=== PATIENT | female | born 1975 | race Caucasian/White ===

== ENCOUNTER 2018-04-06 16:20 | Emergency (ER) | payer BC ==
--- NOTE | 2018-04-06 16:21 | ED Physician Documentation ---
General Adult - HISTORIAN Historian: patient - HPI Stated Complaint: flank/abdominal pain Chief Complaint: Abdominal Pain Onset: days ago (2) Timing: still present Severity: moderate Further Comments: yes (She states two days ago she was walking with her mom and she got the most sharp pain she has ever had on her right upper back/flank / side area that "stopped me in my tracks and I fell down in pain" she states she did get home and she still had pain. she states she was going "work through it" and she tried to go on about her day today and she has had increasing pain. She is "not comfortable in any position" she has tried OTC with no relief . Denies a fever. she has no N/V/D. No other complaints) Last known Well Code/Unknown Code: Unknown - ROS CONST: denies: fever MS/SKIN/LYMPH: denies: rash NEURO/PSYCH: denies: difficulty walking - PAST HX Past History: none Other History: none Surgeries/Procedures: none Immunizations: UTD Allergies/Adverse Reactions: Allergies Allergy/AdvReac Type Severity Reaction Status Date / Time No Known Drug Allergies Allergy Verified 04/06/18 17:41 Home Medications: Ambulatory Orders Medication Instructions Recorded NK [NK] 04/06/18 - SOCIAL HX Smoking History: non-smoker Alcohol Use: none Drug Use: none - FAMILY HX Family History: No - REVIEWED ASSESSMENTS Nursing Assessment Reviewed: Yes Vitals Reviewed: Yes ED Results Lab/Radiology - Radiology Radiology Impressions: CT abdomen and pelvis without contrast Date of study: April 06, 2018. CLINICAL HISTORY: ABD PAIN STARTED YESTERDAY (Hx) / ITS.REASON R/O kidney stone (DICOM Hx) TECHNIQUE: 5 mm contiguous axial images of the abdomen and pelvis non contrast. FINDINGS: No comparison studies are provided. The lung bases are clear. Abdomen: The liver, pancreas and spleen are normal in appearance. Gallstones are present in the dependent aspect of the gallbladder. The kidneys are normal in size and surface contour. There is no evidence of renal or ureteral calculi identified. No hydronephrosis or perinephric stranding is evident. The aorta is normal in caliber. The small bowel is nondistended. There is no evidence of free air or free fluid. Pelvis: The colon is generally filled with stool. The distal ureters and bladder are normal in appearance. There is no evidence of distal ureteral or intravesicular calculi. And appendicolith is present in the tip of the appendix , however, the appendix is nondilated and there is no evidence surrounding inflammatory changes to suggest acute appendicitis. There is no evidence of free air or free fluid. The sigmoid colon and rectum are normal. The remaining pelvic structures are within normal limits and the bones of the pelvis are intact. IMPRESSION: No evidence of renal or ureteral calculi. Cholelithiasis. Electronically signed on April 06, 2018 6:33:51 PM CDT by: Ruma [facility] Adult Physical Exam - PHYSICAL EXAM GENERAL APPEARANCE: mild distress EENT: eye inspection normal, ENT inspection normal, pharynx normal, no signs of dehydration NECK: normal inspection RESPIRATORY: no resp distress, chest non-tender, breath sounds normal CVS: reg rate & rhythm, heart sounds normal, equal pulses, no murmur ABDOMEN: soft, normal bowel sounds, no distension, tenderness (RUQ - pain with palpation right mid abdomen ). No: McBurney's point tenderne, guarding BACK: normal inspection, CVA tenderness (R) SKIN: warm/dry, normal color EXTREMITIES: non-tender NEURO: oriented X3, CN's nml as tested, motor nml, sensation nml Discharge Clincal Impression: Cholelithiasis Qualifiers: Cholelithiasis location: other site Biliary obstruction: without biliary obstruction Qualified Code(s): K80.80 - Other cholelithiasis without obstruction Constipation Qualifiers: Constipation type: unspecified constipation type Qualified Code(s): K59.00 - Constipation, unspecified Referrals: Babak Willis MD [Primary Care Provider] - 2 Days Comments: 1. Percocet 5/325 mg take 1 by mouth at home and another for 4-6 hours if needed for pain 2. Increase clear liquids 3. Decrease fat and fried foods 4. Follow up with PCP in am about possible surgeon referral 5. Return to ER for uncontrolled pain or other concerns miralax for constipation Condition: Stable Disposition: 01 HOME, SELF-CARE Decision to Admit: NO Date of Decison to Admit: 04/06/18 Decision Time: 18:42
[2018-04-06] MEDS ORDERED: 0.9 % SODIUM CHLORIDE 1,000 ML IV ONE (16:39)
[2018-04-06] MEDS ORDERED: KETOROLAC TROMETHAMINE 30 MG/1ML VIAL ONE (16:58)
[2018-04-06] MEDS ORDERED: KETOROLAC TROMETHAMINE 30 MG/1ML VIAL IVP ONE (16:58)
[2018-04-06 17:14] LABS: eGFR (African) > 60; eGFR (Non-African) > 60
[2018-04-06 17:37] LABS: MEAN CORPUSCULAR VOLUME 81.6 fl (80.0-100.0)
[2018-04-06 17:39] LABS: MONOCYTES % 3.6 % (0.0-11.0)
[2018-04-06 17:40] LABS: BASOPHILS % 0.3 (0.0-1.5); EOSINOPHILS % 3.5 % (0.0-6.8); NEUTROPHILS # 5.8 # k/uL (1.4-7.7)
[2018-04-06] MEDS ORDERED: oxyCODONE/ACETAMINOPHEN 5/325 TABLET PO ONE (18:38)
--- NOTE | 2018-04-06 18:44 | Diagnostic Imaging Report ---
ROMERO MONTGOMERY [facility] [id number] [facility] [address] [place], [place]. [address] Report Submission Date: April 06, 2018 6:33:51 PM CDT Patient Study Name: CHELSEY FORD Date: April 06, 2018 5:58:46 PM CDT Modality Type: CT\SR Gender: F Description: CT ABD PELVIS W/O CO : 77 Institution: [facility] Physician: ROMERO MONTGOMERY CT abdomen and pelvis without contrast Date of study: April 06, 2018. CLINICAL HISTORY: ABD PAIN STARTED YESTERDAY (Hx) / ITS.REASON R/O kidney stone (DICOM Hx) TECHNIQUE: 5 mm contiguous axial images of the abdomen and pelvis non contrast. FINDINGS: No comparison studies are provided. The lung bases are clear. Abdomen: The liver, pancreas and spleen are normal in appearance. Gallstones are present in the dependent aspect of the gallbladder. The kidneys are normal in size and surface contour. There is no evidence of renal or ureteral calculi identified. No hydronephrosis or perinephric stranding is evident. The aorta is normal in caliber. The small bowel is nondistended. There is no evidence of free air or free fluid. Pelvis: The colon is generally filled with stool. The distal ureters and bladder are normal in appearance. There is no evidence of distal ureteral or intravesicular calculi. And appendicolith is present in the tip of the appendix , however, the appendix is nondilated and there is no evidence surrounding inflammatory changes to suggest acute appendicitis. There is no evidence of free air or free fluid. The sigmoid colon and rectum are normal. The remaining pelvic structures are within normal limits and the bones of the pelvis are intact. IMPRESSION: No evidence of renal or ureteral calculi. Cholelithiasis. Electronically signed on April 06, 2018 6:33:51 PM CDT by: Ruma QUINTANILLA
[2018-04-06] MEDS ORDERED: traMADol HCL 50 MG TABLET PO ONE (18:55)
[2018-04-06 19:05] VITALS: BP 132/84
[2018-04-07 09:01] LABS: APPEARANCE,URINE CLEAR (CLEAR); COLOR,URINE YELLOW (YELLOW); OCCULT BLOOD,URINE TRACE-LYSED (NEGATIVE); PH URINE 5.5 (5.0 - 8.0); URINE HCG NEGATIVE (NEGATIVE); UROBILINOGEN URINE 0.2 Eu (0.2-1.0)
== END 2018-04-06 18:55 | disposition home or self-care (01) ==
LOC: ED 16:20
DX: K80.80 Other cholelithiasis without obstruction (principal); K59.00 Constipation, unspecified
CPT/HCPCS: 74176; 80053; 85025; J1885; J7030; 81002; 81025; 96365; 96375; 99283; A9270-GY; S1016